=== PATIENT | female | born 1940 | race Caucasian/White ===

== ENCOUNTER 2017-07-03 15:24 | Observation (INO) | payer BC, OTHER ==
--- NOTE | 2017-07-03 15:34 | PDOC ---
History of Present Illness <Alesha Guillory - Last Filed: 07/03/17 17:41> - General History Source: Significant Other () Exam Limitations: No Limitations - History of Present Illness Initial Comments: 07/03/17 17:50 Patient is a 76 year old female with a significant past medical history of Alzheimer's, High cholesterol , who presents to the ED s/p stroke that occurred 20 minutes before ED arrival. As per patient's patient was in the car when she began to shake suddenly. He reports patient then began to not speak, without following commands. Patient's states patient was baseline normal. Patient's states patient did not bite her tongue or urinate while in car. Denies chest pain, SOb. Denies diabetes, Denies fevers, chills. Denies any other symptoms. Allergies: None Social history: Lives with Surgical history: None PMD: Dr. Frias <Temo Patino - Last Filed: 07/03/17 17:51> - General Stated Complaint: CVA/TIA Time Seen by Provider: 07/03/17 15:33 NIH Stroke Scale - Last Known Well Date/Time & Onset Date Last Known Well: 07/03/17 Time Last Known Well: 15:00 - Initial Evaluation Level of consciousness: Alert Ask patient the month and their age: Both incorrect (only says "what") Ask patient to open & close eyes; make fist and let go: Obeys one correctly Best gaze (horizontal eye movement): Normal Visual field testing: No visual field loss Facial paresis (Show teeth/raise eyebrows/close eyes tight): Normal symmetrical movement Motor Function: Left Arm: Normal Motor Function: Right Arm: Normal (extends arm 90 (or 45) degrees for 10 seconds without drift Motor Function: Left Leg: Normal (extends leg 30 degrees for 5 seconds without drift) Motor Function: Right Leg: Normal (extends leg 30 degrees for 5 seconds without drift) Limb Ataxia: No ataxia Sensory(Use pinprick test arms,legs,trunk,face/side to side): Normal Best language (Describe picture, name items, read sentences): Mild to moderate aphasia (only answers with "what", poss both receptive and expressive aphasia) Dysarthria (read several words): Mild to moderate slurring of words (only answers what) Extinction and Inattention: No abnormality - Total Score NIH Stroke Scale Score: 5 <Alesha Guillory - Last Filed: 07/03/17 17:41> tPA Exclusion Checklist 0-3hr - Time Elapsed Date last known well: 07/03/17 Time last known well: 15:00 Elaspsed time: Day(s) and 2 Hour(s) and 42 Minutes - Thrombolytic Therapy Candidate Is the patient eligible for Thrombolytic Therapy?: No - Ineligibility reason(s) Reasons No tPA given: See reason(s) noted above (resolution of symptoms - no focal neuro deficits) <Alesha Guillory - Last Filed: 07/03/17 17:41> Past History <Alesha Guillory - Last Filed: 07/03/17 17:41> <Temo Patino - Last Filed: 07/03/17 17:51> - Past Medical History Allergies/Adverse Reactions: Allergies Allergy/AdvReac Type Severity Reaction Status Date / Time No Known Allergies Allergy Verified 07/03/17 15:51 Home Medications: Ambulatory Orders Unobtainable [Unobtainable] 07/03/17 Review of Systems - Review of Systems Able to Perform ROS?: No Comments:: 07/03/17 17:50 Unable to perform ROS. All Other Systems: Reviewed and Negative <Temo Patino - Last Filed: 07/03/17 17:51> *Physical Exam - Physical Exam Comments: 07/03/17 17:50 GENERAL: +Very agitated when arrived. Awake, alert, in no acute distress HEAD: No signs of trauma EYES: PERRLA, EOMI, sclera anicteric, conjunctiva clear ENT: Auricles normal inspection, hearing grossly normal, nares patent, oropharynx clear without exudates. Moist mucosa NECK: Normal ROM, supple, no lymphadenopathy, JVD, or masses LUNGS: Breath sounds equal, clear to auscultation bilaterally. No wheezes, and no crackles HEART: Regular rate and rhythm, normal S1 and S2, no murmurs, rubs or gallops ABDOMEN: Soft, nontender, normoactive bowel sounds. No guarding, no rebound. No masses EXTREMITIES: +Moving all extremities. Normal range of motion, no edema. No clubbing or cyanosis. No cords, erythema, or tenderness NEUROLOGICAL: +Both receptive and expressive aphasia. No cranial deficits. Cranial nerves II through XII grossly intact. SKIN: Warm, Dry, normal turgor, no rashes or lesions noted. <Temo Patino - Last Filed: 07/03/17 17:51> Heart Score/ECG Review - ECG Intrepretation Comment:: 07/03/17 16:39 sinus at 76, rbbb, pacs, no acute changes <Alesha Guillory - Last Filed: 07/03/17 17:41> ED Treatment Course - LABORATORY CBC & Chemistry Diagram: 07/03/17 16:00 07/03/17 16:00 <Alesha Guillory - Last Filed: 07/03/17 17:41> - LABORATORY CBC & Chemistry Diagram: 07/03/17 16:00 07/03/17 16:00 <Temo Patino - Last Filed: 07/03/17 17:51> Medical Decision Making - Medical Decision Making 07/03/17 15:49 a/p: 76yo female with acute onset of aphasia - concern for poss both receptive and expressive aphasia -per the , last seem normal around 3p today when getting in the car to go out to the store -moving all extremities and agitated, per the this is new behavior that he has not seen before -said there was an episode of shaking in the car, but no LOC, no incontinence or tongue biting -pt with hx of alzheimers, per taking all meds -usually able to answer questions of her name, , and her husbands name per the -sent to head ct for poss cva -labs, ekg, poct glucose, discuss with neuro 07/03/17 15:[address] Gee who state the patient is well known to him, her dementia has been worsening with episodes of agitation whenever she needs to leave the house or with feeding. there is sometimes resistance to taking meds. She is no longer allowed to be left alone. Requests call back after head ct to discuss results. 07/03/17 16:37 re-eval: pt back to neuro baseline. Able to answer simple questions - knows her name and knows she is at the hospital. Neuro exam - speaking in clear sentences. No focal neuro deficits. Able to tell me who her son is at the bedside. Pt moving all extremities. Denies trotter. No cp/sob. No abd pain. No recent n/v/d. NO dysuria. CN ii-xii grossly intact. 07/03/17 17:[address] Frias who reocmmends obs placement, uses hospitalist sermelissa 07/03/17 17:41 case discussed with Mireille from [facility] - accepts pt to obs under Patasalos <Alesha Guillory - Last Filed: 07/03/17 17:41> - Medical Decision Making 07/03/17 15:[address] Gee @15:36pm. Case discussed. Called Dr. Gee @16:40pm. Case discussed. NO TPA Resolution of symtpoms. If labs are ok to follow up on a neuro standpoint. <Temo Patino - Last Filed: 07/03/17 17:51> *DC/Admit/Observation/Transfer - Discharge Dispostion Admit: Yes - Attestations Physician Attestion: 07/03/17 17:43 I, Dr. Alesha Guillory DO, attest that this document has been prepared under my direction and personally reviewed by me in its entirety. I further attest, that it accurately reflects all work, treatment, procedures and medical decision -making performed by me. <Alesha Guillory - Last Filed: 07/03/17 17:41> - Attestations Scribe Attestion: 07/03/17 16:48 Documentation prepared by Temo Patino, acting as medical laboratory technicians for Alesha Guillory DO. <Temo Patino - Last Filed: 07/03/17 17:51> Diagnosis at time of Disposition: TIA (transient ischemic attack) - Discharge Dispostion Condition at time of disposition: Fair - Referrals Referrals: Parth Frias MD [Primary Care Provider] -
[2017-07-03 16:19] LABS: BASOPHIL 1.1 % (0-2.0); MCHC 33.2 g/dl (32.0-36.0); MEAN CELL VOLUME 84.4 fl (80-96); MEAN PLT VOLUME 7.8 fl (7.5-11.1); NEUTROPHILS 57.1 % (42.8-82.8); PLATELET COUNT 159 K/MM3 (134-434); RDW 15.8 % (11.6-15.6); WHITE BLOOD COUNT 5.6 K/mm3 (4.0-10.0)
[2017-07-03 16:40] LABS: INR 1.09 (0.82-1.09); URINE APPEARANCE CLEAR; URINE BILIRUBIN NEGATIVE (NEGATIVE); URINE BLOOD NEGATIVE (NEGATIVE); URINE COLOR STRAW; URINE GLUCOSE (UA) NEGATIVE (NEGATIVE); URINE KETONE NEGATIVE (NEGATIVE); URINE LEUK ESTERASE NEGATIVE (NEGATIVE); URINE NITRITE NEGATIVE (NEGATIVE); URINE PROTEIN NEGATIVE (NEGATIVE); URINE UROBILINOGEN NEGATIVE mg/dL (0.2-1.0)
[2017-07-03 16:43] LABS: ACTIVATED PTT 26.9 SECONDS (26.9-34.4); ALBUMIN 3.4 g/dl (3.4-5.0); ANION GAP 8 (8-16); BILIRUBIN,TOTAL 0.4 mg/dL (0.2-1.0); CALCIUM 8.6 mg/dL (8.5-10.1); CHOLESTEROL 265 mg/dL (50-200); CO2 26 mmol/L (21-32); CREATININE 0.9 mg/dL (0.55-1.02); GLUCOSE,RANDOM 80 mg/dL (74-106); MAGNESIUM 2.4 mg/dL (1.8-2.4); PHOSPHOROUS 3.5 mg/dL (2.5-4.9); SGOT/AST 19 U/L (15-37); SGPT/ALT 17 U/L (12-78); TOT PROT 6.8 g/dl (6.4-8.2)
[2017-07-03 17:07] LABS: ALK PHOS 54 U/L (45-117); CPK 77 IU/L (26-192); THYROID STIMULATING HORMONE 4.61 uIU/ml (0.358-3.74); TROPONIN I < 0.02 ng/ml (0.00-0.05)
--- NOTE | 2017-07-03 18:13 | HP ---
CHIEF COMPLAINT: altered mental status PCP: Dr. Frias Neuro: Dr. Gee Cards: Dr. Bansal HISTORY OF PRESENT ILLNESS: This is a 76 year old female with PMHx of hypercholesterolemia, hyperlipidemia, HTN, Alzheimer's who presented to the ED after her saw her lose consciousness for about 1-2 minutes. Around 3pm today, the patient was walking outside with her and stumbled. When asked if she was ok, she stated she was "alright". They got into the car and the patient began to have tremors and lost consciousness for about 1-2 minutes. She was not able to speak when she woke up. The denies any bladder or bowel incontinence, biting of the tongue. He states she did not have any complaints prior to this episode today. ER course was notable for: (1) Head CT with moderate volume loss and mild periventricular chronic microvascular ischemic changes. No gross acute intracranial pathology identified (2) Chest X-ray: borderline cardiomegaly. Bilateral increased interstitial markings mainly in the left lung, cannot rule out mild pulmonary venous congestion or superimposed infiltrates. Follow-up chest x-ray is recommended. (3) Cholesterol 265, LDL 176. TSH 4.61 (4) Ativan 2mg IM given Recent Travel: denies PAST MEDICAL HISTORY: As above PAST SURGICAL HISTORY: Thoracic stents ( is unaware what type) Social History: Smoking: denies Alcohol: denies Drugs: denies Family History: Allergies No Known Allergies Allergy (Verified 07/03/17 15:51) HOME MEDICATIONS: Home Medications Medication Instructions Recorded Unobtainable [Unobtainable] 07/03/17 REVIEW OF SYSTEMS: reported by CONSTITUTIONAL: Absent: fever, chills, diaphoresis, generalized weakness, malaise, loss of appetite, weight change HEENT: Absent: rhinorrhea, nasal congestion, throat pain, throat swelling, difficulty swallowing, mouth swelling, ear pain, eye pain, visual changes CARDIOVASCULAR: Absent: chest pain, syncope, palpitations, irregular heart rate , lightheadedness, peripheral edema RESPIRATORY: Absent: cough, shortness of breath, dyspnea with exertion, orthopnea, wheezing, stridor, hemoptysis GASTROINTESTINAL:Absent: abdominal pain, abdominal distension, nausea, vomiting , diarrhea, constipation, melena, hematochezia GENITOURINARY: Absent: dysuria, frequency, urgency, hesitancy, hematuria, flank pain, genital pain MUSCULOSKELETAL: Absent: myalgia, arthralgia, joint swelling, back pain, neck pain SKIN: Absent: rash, itching, pallor HEMATOLOGIC/IMMUNOLOGIC: Absent: easy bleeding, easy bruising, lymphadenopathy, frequent infections ENDOCRINE:Absent: unexplained weight gain, unexplained weight loss, heat intolerance, cold intolerance NEUROLOGIC: Unsteady gait, difficulty speaking, tremors, loss of consciousness which began at 3pm today. Absent: headache, dizziness, seizure, bladder or bowel incontinence PHYSICAL EXAMINATION Vital Signs - 24 hr 07/03/17 07/03/17 07/03/17 15:44 16:27 18:09 Temperature 97.6 F 98.2 F 98.2 F Pulse Rate 90 Pulse Rate [ 72 80 Left Radial] Respiratory 18 20 20 Rate Blood Pressure 129/79 Blood Pressure 113/70 115/80 [Left Arm] O2 Sat by Pulse 100 Oximetry (%) GENERAL: Sleeping, arousable to touch, however goes back to sleep immediately. NAD HEAD: Normal with no signs of trauma. EYES: Pupils equal, round and reactive to light EARS, NOSE, THROAT: Ears normal. Moist mucous membranes. LUNGS: Breath sounds equal, clear to auscultation bilaterally. No wheezes, and no crackles. No accessory muscle use. HEART: Regular rate and rhythm, normal S1 and S2 ABDOMEN: Soft, not distended, normoactive bowel sounds UPPER EXTREMITIES: 2+ pulses, warm, well-perfused. No cyanosis. No clubbing. No peripheral edema. LOWER EXTREMITIES: 2+ pulses, warm, well-perfused. No peripheral edema. SKIN: Warm, dry, normal turgor, no rashes or lesions noted, normal capillary refill. Laboratory Results - last 24 hr 07/03/17 07/03/17 07/03/17 16:00 16:00 16:00 WBC 5.6 RBC 4.03 Hgb 11.3 Hct 34.0 MCV 84.4 MCH 28.0 MCHC 33.2 RDW 15.8 H Plt Count 159 MPV 7.8 Neutrophils % 57.1 Lymphocytes % 32.2 Monocytes % 6.6 Eosinophils % 3.0 Basophils % 1.1 PT with INR 12.00 H INR 1.09 PTT (Actin FS) 26.9 Sodium Potassium Chloride Carbon Dioxide Anion Gap BUN Creatinine Creat Clearance w eGFR Random Glucose Calcium Phosphorus Magnesium Total Bilirubin AST ALT Alkaline Phosphatase Ammonia Creatine Kinase Troponin I Total Protein Albumin Triglycerides Cholesterol Total LDL Cholesterol HDL Cholesterol TSH Urine Color Straw Urine Appearance Clear Urine pH 6.0 Urine Protein Negative Urine Glucose (UA) Negative Urine Ketones Negative Urine Blood Negative Urine Nitrite Negative Urine Bilirubin Negative Urine Urobilinogen Negative 07/03/17 07/03/17 16:00 16:00 WBC RBC Hgb Hct MCV MCH MCHC RDW Plt Count MPV Neutrophils % Lymphocytes % Monocytes % Eosinophils % Basophils % PT with INR INR PTT (Actin FS) Sodium 139 Potassium 4.2 Chloride 105 Carbon Dioxide 26 Anion Gap 8 BUN 18 Creatinine 0.9 Creat Clearance w eGFR > 60 Random Glucose 80 Calcium 8.6 Phosphorus 3.5 Magnesium 2.4 Total Bilirubin 0.4 AST 19 ALT 17 Alkaline Phosphatase 54 Ammonia 10.61 L Creatine Kinase 77 Troponin I < 0.02 Total Protein 6.8 Albumin 3.4 Triglycerides 111 Cholesterol 265 H Total LDL Cholesterol 176 H HDL Cholesterol 58 TSH 4.61 H Urine Color Urine Appearance Urine pH Urine Protein Urine Glucose (UA) Urine Ketones Urine Blood Urine Nitrite Urine Bilirubin Urine Urobilinogen This is a 76 year old female with PMHx of hypercholesterolemia, hyperlipidemia, HTN, Alzheimer's who presented to the ED after her saw her lose consciousness for about 1-2 minutes. Plan: 1) Neurology: TIA vs. CVA vs. seizure - Patient had tremors with LOC and after she awoke was unable to speak - Per ED staff, patient back to baseline - Spoke to who states patient's mental status has improved, however she does not totally recognize him and that is not her baseline - does not know home medications, left message with Dr. Frias's office to verify - Head CT reviewed - F/u speech and swallow evaluation - F/u PT - F/u neurology consult 2) Cardiology: Loss of consciousness - As above, possible syncopal episode - Trend trops - F/u ECHO - F/u carotid dopplers to r/o any high grade stenosis - Start ASA - F/u cardiology consult Hyperlipidemia - states she takes Lipitor 80mg po daily. Will start HTN - Monitor BP - F/u home medications tomorrow 3) F/E/N: - Sodium controlled diet when awake - Monitor electrolytes 4) Prophylaxis: - SCDs bilaterally - Heparin 5,000u sq bid 5) Dispo: - Once condition improves CODE STATUS: FULL CODE Visit type - Emergency Visit Emergency Visit: Yes Care time: The patient presented to the Emergency Department on the above date and was hospitalized for further evaluation of their emergent condition. - New Patient This patient is new to me today: Yes Date on this admission: 07/03/17 - Critical Care Critical Care patient: No
[2017-07-03] MEDS ORDERED: ASPIRIN 81 MG CHEWABLE TABLETS PO SCH (18:45)
[2017-07-03 19:08] VITALS: BMI 27.2
[2017-07-03] MEDS ORDERED: FLU VACCINE QUAD 60 MCG/0.5 ML (MDV 17-18) IM ONE (19:08)
[2017-07-03 22:40] LABS: CPK 393 IU/L (26-192); TROPONIN I < 0.02 ng/ml (0.00-0.05)
[2017-07-03] MEDS: ATORVASTATIN CA 80 MG TABLET (FP) PO SCH (23:19)
[2017-07-03] MEDS: HEPARIN NA (PORCINE) 5,000 UNITS/ML 1ML VIAL SQ SCH (23:20)
[2017-07-04] MEDS: ASPIRIN 81 MG CHEWABLE TABLETS PO SCH ×2 (06:23→10:43)
[2017-07-04 07:25] LABS: BASOPHIL 0.9 % (0-2.0); EOSINOPHIL 2.8 % (0-4.5); MCH 27.5 pg (25.7-33.7); MEAN CELL VOLUME 83.4 fl (80-96); MEAN PLT VOLUME 7.9 fl (7.5-11.1); NEUTROPHILS 62.5 % (42.8-82.8); PLATELET COUNT 171 K/MM3 (134-434); RDW 15.6 % (11.6-15.6); WHITE BLOOD COUNT 6.9 K/mm3 (4.0-10.0)
[2017-07-04 07:56] LABS: ALBUMIN 3.4 g/dl (3.4-5.0); ANION GAP 6 (8-16); CALCIUM 9.1 mg/dL (8.5-10.1); CO2 30 mmol/L (21-32); GLUCOSE,RANDOM 77 mg/dL (74-106)
[2017-07-04 08:01] LABS: ALK PHOS 60 U/L (45-117); BILIRUBIN,TOTAL 0.5 mg/dL (0.2-1.0); CREATININE 0.8 mg/dL (0.55-1.02); SGOT/AST 29 U/L (15-37); SGPT/ALT 18 U/L (12-78); TOT PROT 6.9 g/dl (6.4-8.2)
[2017-07-04 08:05] LABS: CPK 465 IU/L (26-192); TROPONIN I < 0.02 ng/ml (0.00-0.05)
--- NOTE | 2017-07-04 10:09 | CONSULT ---
Admitting History and Physical - Primary Care Physician PCP: Mireille Linton - Admission History of Present Illness: 76 year old female with PMHx of hypercholesterolemia, hyperlipidemia, HTN, Alzheimer's who presented to the ED after her saw her lose consciousness for about 1-2 minutes. History Source: Family Member, Medical Record Limitations to Obtaining History: Clinical Condition, Dementia - Advance Directives Advance Directives: Yes: Health Care Proxy - Smoking History Smoking history: Unknown if ever smoked Have you smoked in the past 12 months: No - Alcohol/Substance Use Hx Alcohol Use: No History - Admission Reason For Visit: TRANSIENT CEREBRAL ISCHEMIA - Diagnostics X-ray: Report Reviewed (Chest X-ray: borderline cardiomegaly. Bilateral increased interstitial markings mainly in the left lung, cannot rule out mild pulmonary venous congestion or superimposed infiltrates. Follow-up chest x-ray is recommended.) CT Scan: Report Reviewed ( Head CT with moderate volume loss and mild periventricular chronic microvascular ischemic changes. No gross acute intracranial pathology identified) - General Mental Status: Awake and Alert, Confused Attention: Distractible, Mild Impairment Ability to Follow Directions: Fair (simple) Head/Neck Control: Good - Hearing Hearing: Functional Speech Evaluation - Communication Primary Language: ZAMBIAN Communication: Yes: Aphasia (Language of confusion with anomia, paraphasic errors, tangential responses,) Oral Expression Ability: Yes: Moderate Impairment - Speech Production Able to Make Needs Known: Yes: Moderately Impaired Intelligibility: Yes: WNL - Speech Characteristics Voice Loudness: Normal Voice Pitch: Yes: Normal Voice Phonatory-based Quality: Yes: Normal Speech Pattern: Impaired Speech Clarity: < 50% Nasal Resonance: Normal Articulation: Yes: Precise Rate of Speech: Intact - Language/Auditory Comprehension Observation: Able to respond to yes/no queries: Yes (simple, intermittent), Comprehends Conversational Speech: Yes (very simple, intermittent), Benefits from Slow Speech: Yes, Benefits from Repetiton: Yes, Benefits from Increased Volume of Speech: No - Language/Verbal Expression Able to Respond to Simple Queries: Yes: Moderately Impaired Able to Communicate Wants and Needs: Yes: Moderately Impaired Functional Communication Status: Yes: Moderately Impaired - Swallow Evaluation/Bedside Assessment Current Nutritional Intake: Regular, Thin Liquids Oral Secretions: Yes: WFL Dentition: Yes: Adequate, Missing Teeth Facial Symmetry at Rest: Symmetrical Facial Symmetry on Retraction: Symmetrical Against Resistance Opening: Normal Against Resistance Closing: Normal Pucker Lips: Normal Smile: Normal Lingual Movement: Normal, Symmetric Lingual Speed of Movement: Normal Lingual Movement Strgth Against Opposition: Normal Lingual Movement Characteristics: Normal Velopharyngeal Movement: Normal Laryngeal Elevation: WFL Laryngeal Movement: Able to Palpate Rate of Intake: WFL Labial Seal: WFL Chewing: WFL Oral Prep Time: WFL A-P Transit: WFL Timing of Swallow: WFL Coughing/Throat Clear: No Change in Voice: No Recommendations - Speech Evaluation, Impression/Plan Impression: Dementia with language of confusion characterized by anomia, grammatic errors, tangential responses, word salad at times. Pt's states that she is back to baseline linquistic function. No dysarthria/ dysphagia. Moderate cognitive deficits. - Disposition Discharge to: Home with Assist - Dysphagia Impressions/Plan Swallowing Skills: WF Dysphagia Impressions: No Impairment *Silent aspiration: cannot be R/O at bedside - Recommendations Diet Consistency: Regular Medication Administration: Whole with water Liquids: Thin Liquids
[2017-07-04] MEDS: HEPARIN NA (PORCINE) 5,000 UNITS/ML 1ML VIAL SQ SCH ×2 (10:43→23:16)
--- NOTE | 2017-07-04 11:05 | CON.CARD ---
Consult Consult Specialty:: Cardiology Referred by:: Hospitalist service Reason for Consultation:: Cardiac evaluation - History of Present Illness Chief Complaint: Syncope History of Present Illness: Patient is a 76 year old female who is known to Dr. Mikal Bansal with underlying history of hypertension, hypercholesterolemia and Alzheimer's dementia. She presents after 2 episode of syncope. She was walking with her when first episode happened, but she did not fall to the ground as her was able to catch her. She then got into the care when her noticed that she again passed out in the seat. This time, she was not able to speak the moment she woke up. She denies urine incontinence or shaking. Her does not report any tremors. She denies chest pain, shortness of breath or palpitations. She denies paroxysmal nocturnal dyspnea or orthopnea. She denies fever or chills. She denies headache or lightheadedness. She has not had these events in the past. Head CT showed moderate volume loss and mild periventricular chronic microvascular ischemic changes. No gross acute intracranial pathology was identified Her PMH also includes coronary artery disease with PCI/bare metal stent in 1998. - History Source History Provided By: Family Member, Medical Record Limitations to Obtaining History: Dementia - Past Medical History ELIGIBILITY TECHNICIAN: Yes: Alzheimer's Cardio/Vascular: Yes: HTN, Hyperlipdemia - Alcohol/Substance Use Hx Alcohol Use: No History of Substance Use: reports: None - Smoking History Smoking history: Unknown if ever smoked Have you smoked in the past 12 months: No Home Medications - Allergies Allergies/Adverse Reactions: Allergies Allergy/AdvReac Type Severity Reaction Status Date / Time No Known Allergies Allergy Verified 07/03/17 15:51 - Home Medications Home Medications: Ambulatory Orders Unobtainable [Unobtainable] 07/03/17 Review of Systems - Review of Systems Constitutional: denies: Chills, Fever Cardiovascular: denies: Chest Pain, Palpitations, Shortness of Breath Respiratory: denies: Cough, Hemoptysis, Orthopnea, PND, SOB, SOB on Exertion Gastrointestinal: denies: Abdominal Pain, Constipation, Diarrhea, Melena, Nausea , Rectal Bleeding, Vomiting Musculoskeletal: denies: Joint Pain Neurological: denies: Dizziness, Headache, Seizure, Syncope Vital Signs: Vital Signs Temperature 97.4 F L 07/03/17 21:44 Pulse Rate 65 07/04/17 06:47 Respiratory Rate 20 07/04/17 06:47 Blood Pressure 140/63 07/04/17 06:47 O2 Sat by Pulse Oximetry (%) 100 07/03/17 22:00 Neck: Yes: Supple Respiratory: Yes: Regular, CTA Bilaterally Gastrointestinal: Yes: Normal Bowel Sounds, Soft. No: Tenderness Cardiovascular: Yes: Regular Rate and Rhythm JVD: No Carotid Bruit: No PMI: Non-Displaced Heart Sounds: Yes: S1, S2. No: Gallop Edema: No - Other Data Labs, Other Data: CBC, BMP 07/04/17 05:15 07/04/17 05:15 INR, PTT INR 1.09 (0.82-1.09) 07/03/17 16:00 Troponin, BNP 07/03/17 07/04/17 21:45 05:15 Troponin I < 0.02 < 0.02 Sinus rhythm Echo: Pending Imaging - Results Chest X-ray: Report Reviewed (Unremarkable) Ultrasound: Report Reviewed (Carotid Doppler shows small plaque) EKG: Report Reviewed Assessment/Plan 1. Syncopal episodes, etiology to be determined 2. Hypertension 3. Hypercholesterolemia 4. Coronary artery disease post PCI with bare metal stent 5. Carotid artery disease PLAN: 1. Monitor on telemetry 2. Medication list from office are as follows: Metoprolol ER 50 mg once a day, Lisinopril 40 mg once a day, Lipitor 80 mg once a day, Ecotrin 81 mg once a day , Synthroid 25 mcg once a day, Memantine-Donepezil 28/10 mg once a day 3. Transthoracic echocardiography was ordered 4. Carotid Doppler 5. Await Neuro input Further plans are to follow Isaac Schaffer MD
--- NOTE | 2017-07-04 14:15 | EKG ---
Test Reason : Blood Pressure : / mmHG Vent. Rate : 070 BPM Atrial Rate : 110 BPM P-R Int : 000 ms QRS Dur : 136 ms QT Int : 392 ms P-R-T Axes : 000 041 030 degrees QTc Int : 423 ms SINUS RHYTHM WITH MOBITZ I (WENCKEBACH) BLOCK RIGHT BUNDLE BRANCH BLOCK ABNORMAL ECG NO PREVIOUS ECGS AVAILABLE Confirmed by TRIPP STAFFORD MD ([id number]) on 07/04/2017 2:14:42 PM Referred By: Confirmed By:TRIPP STAFFORD MD
--- NOTE | 2017-07-04 15:05 | CONSULT ---
Consult - text type - Consultation Consultation Note: NEUROLOGY CONSULTATION is greatly appreciated: Chart reviewed and patient examined in presence of (who provides history ) and her son. This 76 yo RH woman with h/o HTN and Chol is well-known to me with progressive dementia since 2007. On Namzaric (donepezil 10 mg + mementine ER 28 mg) Often agitated, refuses meds requiring quetiapine PRN. Yesterday while driving in car with her , Pt briefly "shook" then slumped over against her seat belf with witnessed LOC and "tongue hanging out." pulled the car to the curb, gently shook her, and she "woke up." In ER: CT of head (reviewed) showed moderately severe, diffuse, atrophy with ex vacuo hydrocephalus but no acute changes. TSH= 4.61. CK+ 465, 393 This AM: Duplex doppler shows scattered plaques but no sig. stenoses EXAM: No bruits. Thin. Cor reg. No head trauma NEURO: Moderately severe OMS. Ox0. Confused speech. Remainder of exam is normal aside from shuffling gait. IMP: Non-focal exam sig for severe, B/L cerebral dysfunction (OMS, Chronic). Most c/w Alzheimer's disease (AD). Syncope vs. Seizure. Plan Out patient EEG (Seizures are seen with increased frequency i AD). Continue telemetry and/or out patient halter monitor.(donepezil can cause bradyarrhythmia and syncope). Check orthostatic BP's Neuro f/u as out pt. Continue donepezil and mementine for now. Thank you very much, Everett Gee MD
[2017-07-04] MEDS ORDERED: SODIUM CHLORIDE 500 ML IV STA (15:56)
[2017-07-04] MEDS: MEMANTINE HCL 10 MG TABLET (FP) PO SCH (17:25)
--- NOTE | 2017-07-04 18:37 | PN ---
Progress Note (short form) - Note Progress Note: Subjective: The patient was seen and examined at the bedside, she is aware and alert today. She recognizes her . +orthostatics today. Gave 500ml NS bolus with resolution of orthostatics Awaiting PT Current Medications Generic Name Dose Route Start Last Admin Trade Name Jason PRN Reason Stop Dose Admin Aspirin 81 mg 07/04/17 06:00 07/04/17 10:43 Asa - PO 81 mg DAILY LUZMARIA Administration Atorvastatin Calcium 80 mg 07/03/17 22:00 07/03/17 23:19 Lipitor - PO Not Given HS LUZMARIA Donepezil HCl 10 mg 07/05/17 10:00 Aricept - PO DAILY LUZMARIA Heparin Sodium (Porcine) 5,000 unit 07/03/17 22:00 07/04/17 10:43 Heparin - SQ Not Given BID LUZMARIA Levothyroxine Sodium 25 mcg 07/05/17 07:00 Synthroid - PO DAILY@0700 LUZMARIA Lisinopril 40 mg 07/05/17 10:00 Prinivil PO DAILY LUZMARIA Memantine 10 mg 07/04/17 16:45 07/04/17 17:25 Namenda - PO 10 mg BID LUZMARIA Administration Metoprolol Succinate 50 mg 07/05/17 10:00 Toprol Xl - PO DAILY LUZMARIA Objective: Vital Signs Period Temp Pulse Resp BP Sys/Marques Pulse Ox Last 24 Hr 97.4 F-98.2 F 65-115 18-26 110-160/50-103 100-100 Physical Exam: Patient refused CBCD WBC 6.9 K/mm3 (4.0-10.0) 07/04/17 05:15 RBC 4.37 M/mm3 (3.60-5.2) 07/04/17 05:15 Hgb 12.0 GM/dL (10.7-15.3) 07/04/17 05:15 Hct 36.4 % (32.4-45.2) 07/04/17 05:15 MCV 83.4 fl (80-96) 07/04/17 05:15 MCHC 33.0 g/dl (32.0-36.0) 07/04/17 05:15 RDW 15.6 % (11.6-15.6) 07/04/17 05:15 Plt Count 171 K/MM3 (134-434) 07/04/17 05:15 MPV 7.9 fl (7.5-11.1) 07/04/17 05:15 CMP Sodium 139 mmol/L (136-145) 07/04/17 05:15 Potassium 4.0 mmol/L (3.5-5.1) 07/04/17 05:15 Chloride 103 mmol/L (98-107) 07/04/17 05:15 Carbon Dioxide 30 mmol/L (21-32) 07/04/17 05:15 Anion Gap 6 (8-16) L 07/04/17 05:15 BUN 14 mg/dL (7-18) D 07/04/17 05:15 Creatinine 0.8 mg/dL (0.55-1.02) 07/04/17 05:15 Creat Clearance w eGFR > 60 (>60) 07/04/17 05:15 Random Glucose 77 mg/dL (74-106) 07/04/17 05:15 Calcium 9.1 mg/dL (8.5-10.1) 07/04/17 05:15 Total Bilirubin 0.5 mg/dL (0.2-1.0) D 07/04/17 05:15 AST 29 U/L (15-37) D 07/04/17 05:15 ALT 18 U/L (12-78) 07/04/17 05:15 Alkaline Phosphatase 60 U/L (45-117) 07/04/17 05:15 Total Protein 6.9 g/dl (6.4-8.2) 07/04/17 05:15 Albumin 3.4 g/dl (3.4-5.0) 07/04/17 05:15 CARDIAC ENZYMES Creatine Kinase 465 IU/L (26-192) H 07/04/17 05:15 Troponin I < 0.02 ng/ml (0.00-0.05) 07/04/17 05:15 This is a 76 year old female with PMHx of hypercholesterolemia, hyperlipidemia, HTN, Alzheimer's who presented to the ED after her saw her lose consciousness for about 1-2 minutes. Plan: 1) Neurology: TIA vs. CVA vs. seizure - Back to baseline - Head CT: moderately severe, diffuse, atrophy with ex vacuo hydrocephalus but no acute changes. - Speech and swallow evaluation: regular diet with thin liquids - F/u PT - EEG as outpatient - + orthostatics today which resolved with IV NS bolus. Encourage po intake of fluids - Continue Aricept for now and follow-up outpatient - Appreciate neurology consult 2) Cardiology: Loss of consciousness - As above, possible syncopal episode - ECHO reviewed - Carotid dopplers with scattered plaques but no high grade stenosis - Continue ASA - Appreciate cardiology consult Hyperlipidemia - Continue Lipitor HTN - Monitor BP - Continue Toprol XL - Continue Lisinopril 3) Endocrine: Hypothyroidism - Continue Synthroid 3) F/E/N: - Sodium controlled diet - Monitor electrolytes 4) Prophylaxis: - SCDs bilaterally - Heparin 5,000u sq bid 5) Dispo: - Once condition improves CODE STATUS: FULL CODE Visit type - Emergency Visit Emergency Visit: Yes ED Registration Date: 07/03/17 Care time: The patient presented to the Emergency Department on the above date and was hospitalized for further evaluation of their emergent condition. - New Patient This patient is new to me today: No - Critical Care Critical Care patient: No
[2017-07-04] MEDS: ATORVASTATIN CA 80 MG TABLET (FP) PO SCH (23:16)
[2017-07-05] MEDS ORDERED: LEVOTHYROXINE NA 25 MCG TABLET (FP) PO SCH (07:00)
[2017-07-05] MEDS: MEMANTINE HCL 10 MG TABLET (FP) PO SCH (09:22)
[2017-07-05] MEDS: ASPIRIN 81 MG CHEWABLE TABLETS PO SCH (09:22)
[2017-07-05] MEDS ORDERED: PT OWN MED DRAWER 7, Y5N ONE (09:24)
[2017-07-05] MEDS: HEPARIN NA (PORCINE) 5,000 UNITS/ML 1ML VIAL SQ SCH (09:30)
[2017-07-05] MEDS ORDERED: LISINOPRIL 20 MG TABLET (FP) PO SCH (10:00)
[2017-07-05] MEDS ORDERED: DONEPEZIL HCL 10 MG TABLET (FP) PO SCH (10:00)
[2017-07-05] MEDS ORDERED: ASPIRIN COATED 81 MG TABLET.EC PO SCH (10:00)
[2017-07-05] MEDS ORDERED: METOPROLOL SUCCINATE 50 MG TAB.SR.24H (FP) PO SCH (10:00)
--- NOTE | 2017-07-05 10:30 | PN ---
Progress Note, Physician History of Present Illness: No further near or true syncope, feels improved after hydration. - Current Medication List Current Medications: Active Medications Aspirin (Asa -) 81 mg PO DAILY [facility] Last Admin: 07/05/17 09:22 Dose: 81 mg Atorvastatin Calcium (Lipitor -) 80 mg PO HS [facility] Last Admin: 07/04/17 23:16 Dose: 80 mg Donepezil HCl (Aricept -) 10 mg PO DAILY [facility] Heparin Sodium (Porcine) (Heparin -) 5,000 unit SQ BID [facility] Last Admin: 07/05/17 09:30 Dose: Not Given Levothyroxine Sodium (Synthroid -) 25 mcg PO DAILY@0700 [facility] Last Admin: 07/05/17 06:16 Dose: 25 mcg Lisinopril (Prinivil) 40 mg PO DAILY [facility] Last Admin: 07/05/17 09:22 Dose: 40 mg Memantine (Namenda -) 10 mg PO BID [facility] Last Admin: 07/05/17 09:22 Dose: 10 mg Metoprolol Succinate (Toprol Xl -) 50 mg PO DAILY [facility] Last Admin: 07/05/17 09:22 Dose: 50 mg - Objective Vital Signs: Vital Signs Temperature 97.6 F 07/05/17 05:45 Pulse Rate 67 07/05/17 05:45 Respiratory Rate 18 07/05/17 05:45 Blood Pressure 136/80 07/05/17 05:45 O2 Sat by Pulse Oximetry (%) 99 07/05/17 06:00 Constitutional: Yes: No Distress, Calm, Thin Neck: Yes: Supple Cardiovascular: Yes: Regular Rate and Rhythm Respiratory: Yes: Regular, CTA Bilaterally Gastrointestinal: Yes: Normal Bowel Sounds, Soft Edema: No Labs: CBC, BMP 07/04/17 05:15 07/04/17 05:15 INR, PTT INR 1.09 (0.82-1.09) 07/03/17 16:00 Assessment/Plan 07/04/2017 Echo: Normal biventricular size and fxn with tr TR 07/04/2017 No carotid stenosis 1. Syncope with orthostasis resolved post hydration 2. Hypertension 3. Hypercholesterolemia 4. Coronary artery disease post PCI with bare metal stent 5. Carotid artery disease 6. Dementia of Alzheimer's disease PLAN: 1. No events on telemetry 2. Continue Metoprolol ER 50 mg once a day, Lisinopril 40 mg once a day, Lipitor 80 mg once a day, Ecotrin 81 mg once a day, Synthroid 25 mcg once a day , Memantine-Donepezil 28/10 mg once a day 3. Consider outpatient arrhythmia monitoring and EEG 4. May d/c from CV-standpoint with f/u in office
[2017-07-05 10:31] VITALS: BP 162/71; PULSE 64; TEMP 98.2
--- NOTE | 2017-07-05 11:59 | DS ---
Physical Exam: SUBJECTIVE: Patient seen and examined. She offers no acute issues, at bedside, eager to go home. OBJECTIVE: Vital Signs Period Temp Pulse Resp BP Sys/Marques Pulse Ox Last 24 Hr 97.6 F-98.2 F 64-115 18-20 129-165/70-103 99-100 PE Neuro: alert, awake, oriented to self and , dose not know where she is or year Pulm: CTAB CV: s1 s2 rrr no mrg Abd: s nt nd +bs Ext: warm, no le edema HOSPITAL COURSE: Date of Admission:07/03/17 Date of Discharge: 07/05/17 Minutes to complete discharge: 37 Discharge Summary Reason For Visit: TRANSIENT CEREBRAL ISCHEMIA Hospital Course: Initial Hospital Course: Briefly, this 76 year old female with PMHx of hypercholesterolemia, hyperlipidemia, HTN, Alzheimer's presented to the ED after her saw her lose consciousness for about 1-2 minutes while in the car. noted tremors and she was unable to speak when she woke up. The denies any bladder or bowel incontinence, biting of the tongue. She did not have any complaints prior to this episode today. Subsequent Hospital Course/Progress Note/Discharge Summary: 76 year old female with PMHx of hypercholesterolemia, hyperlipidemia, HTN, Alzheimer's who presented to the ED after her saw her lose consciousness for about 1-2 minutes. Plan: 1. TIA vs. CVA vs. seizure - Back to baseline - Head CT: moderately severe, diffuse, atrophy with ex vacuo hydrocephalus but no acute changes. - EEG as outpatient 2. Positive orthostatics - Improved after fluids - Counseled on changing position slowly 3. Dementia - Continue home dose of namzaric 28mg-10mg - Outpt follow up, appt in 2 weeks per - Continue Aricept for now and follow-up outpatient 4. Loss of consciousness - As above, possible syncopal episode - ECHO Normal biventricular size and fxn with tr TR - Carotid dopplers with scattered plaques but no high grade stenosis - Continue ASA - Outpt cardiology follow up for holter, aware 5. Hyperlipidemia - Continue Lipitor 6. HTN - Continue Toprol XL - Continue Lisinopril 7. Hypothyroidism - Continue Synthroid Dispo: - home with above plan and meds, aware and agrees to above plan Condition: Stable - Instructions Diet, Activity, Other Instructions: Please return to the ED with new, persistent, or worsening symptoms. Please follow-up with providers as indicated. Change positions slowly when transferring out of bed or to a standing position Referrals: Mikal Bansal MD [Staff Physician] - 1 Week Parth Frias MD [Primary Care Provider] - Everett Gee MD [Staff Physician] - Disposition: HOME - Home Medications Comprehensive Discharge Medication List: Ambulatory Orders Aspirin [ASA -] 81 mg PO DAILY tab.chew 07/05/17 Atorvastatin Ca [Lipitor] 80 mg PO HS tablet 07/05/17 Levothyroxine [Synthroid -] 25 mcg PO DAILY@0700 tablet 07/05/17 Lisinopril [Prinivil] 40 mg PO DAILY tablet 07/05/17 Memantine HCl/Donepezil HCl [Namzaric 28 mg-10 mg Capsule] 1 each PO DAILY #30 cap.spr.24 07/05/17 Metoprolol Succinate [Toprol XL -] 50 mg PO DAILY tab 07/05/17 This patient is new to me today: Yes Date on this admission: 07/05/17 Emergency Visit: Yes ED Registration Date: 07/03/17 Care time: The patient presented to the Emergency Department on the above date and was hospitalized for further evaluation of their emergent condition. Critical Care patient: No - Discharge Referral Referred to [facility] Med P.C.: No
--- NOTE | 2017-07-05 13:49 | HOL ---
Hook-up date: 2017-07-04 14:09:00 Duration: 20:37:00 Test Indications: Medications: 01434 QRS complexes 225 Ventricular ectopics which represent <1 % of total QRS comp. * Supraventricular ectopics which represent % of total QRS comp. * Paced QRS complexs which represent % of total QRS comp. 2 % of Time Classified as Noise VENTRICULAR ECTOPY 225 Isolated 0 Bigeminal Cycles 0 Couplets 0 Runs 0 Beats in Runs * Beats LONGEST at * BPM at :: -- * Beats FASTEST at * BPM at :: -- SUPRAVENTRICULAR ECTOPY * Isolated * Couplets * Runs * Beats in Runs * Beats LONGEST at * BPM at :: -- * Beats FASTEST at * BPM at :: -- HEART RATES 45 MIN at 03:01:30 2017-07-05 71 AVG 131 MAX at 14:36:05 2017-07-04 LONGEST RR 1.824 secs at 06:04:47 2017-07-05 The underlying rhythm is normal sinus ranging from 45bpm to 131 bp (sinus tachycardia). Moderate single PVCs/ No sustained arrhythmias. No significant pauses. No diary entries. Confirmed by IKMBER NUNO MD ([id number]) on 07/05/2017 1:48:22 PM Referred By: LUBNA CALHOUN,SGROE Overread By: KIMBER NUNO MD
== END 2017-07-05 11:48 | disposition home or self-care (01) ==
LOC: JER 15:24 → JERBED 17:43 → J4W 18:35
PROVIDERS: ADMIT Internal Medicine; ATTEND Nurse Practitioner Acute Care
PROC: 3E0337Z Introduction of Electrolytic and Water Balance Substance into Peripheral Vein, Percutaneous Approach (ICD-10-PCS; principal; 2017-07-03)
DX: R55 Syncope and collapse (principal); I95.1 Orthostatic hypotension; I10 Essential (primary) hypertension; E78.5 Hyperlipidemia, unspecified; G30.9 Alzheimer's disease, unspecified; F02.80 Dementia in other diseases classified elsewhere, unspecified severity, without behavioral disturbance, psychotic disturbance, mood disturbance, and anxiety; I25.10 Atherosclerotic heart disease of native coronary artery without angina pectoris; I65.23 Occlusion and stenosis of bilateral carotid arteries
CPT/HCPCS: 36415; 70450-TC; 71010-TC; 71020-TC; 80053; 80061; 81003; 82140; 82553; 83036; 83721; 83735; 84100; 84443; 84484; 85025; 85610; 85730; 87086; 93005; 93010; 93225; 93226; 93306-TC; 93880-TC; 96360; 99284-25; G0378